=== PATIENT | female | born 1990 | race Caucasian/White ===

== ENCOUNTER 2023-04-03 13:40 | Emergency (ER) | payer MEDICAID ==
[~2023-04-03] VITALS: Ht 170.2 cm; Wt 83.6 kg
[2023-04-03 13:42] VITALS: BP 119/65
== END 2023-04-03 14:54 | disposition home or self-care (01) ==
LOC: EMS 13:43
DX: O42.113 Preterm premature rupture of membranes, onset of labor more than 24 hours following rupture, third trimester (principal)
CPT/HCPCS: 99284; Z7502